=== PATIENT | female | born 1960 | race Caucasian/White ===

== ENCOUNTER 2018-05-15 09:00 | Outpatient (CLI) | payer BC ==
--- NOTE | 2018-05-15 11:00 | MRI ---
MRI LUMBAR SPINE WITHOUT CONTRAST: History: Spinal stenosis. M48.062 Technique: Multiplanar, multisequence noncontrast enhanced MRI images were obtained of the lumbar spi ne. FINDINGS: T12-L1: Unremarkable. L1-2: Disc desiccation is seen. Disc space height loss seen. Irregularity seen at the inferior endpla te of L1 and superior endplate of L2. There is mild facet hypertrophy present. The central canal is p atent. Minimal but not significant evidence of neural foraminal narrowing is seen. L2-3: Disc desiccation seen. There is a broad based disc bulge with bilateral facet and ligamentum fl avum hypertrophy as well as mild central and lateral recess stenosis. The neural foramen are patent. L3-4: Disc desiccation is seen. There is a broad based disc bulge with bilateral facet and ligamentum flavum hypertrophy resulting in moderate to severe central and lateral recess stenosis. Fluid is see n in the L3-4 facet joints. Mild bilateral neural foraminal narrowing is seen. L4-5: Fusion is seen using pedicle screws and intervertebral disc hardware at L4-5 and L5-S1. No sign ificant degree of central stenosis or neural foraminal narrowing seen at L4-5. L5-S1: Fusion is seen at this level. The central canal is patent. Mild neural foraminal narrowing is seen. IMPRESSION: L3-4 central and lateral recess stenosis just above the fusion level. There may be developing spondyl osis at the L3-4 disc space with a broad based disc bulge and L3-4 facet hypertrophic changes. POS: JO[facility] M
--- NOTE | 2018-05-15 11:03 | MRI ---
MRI CERVICAL SPINE: History: Cervical stenosis. Technique: Multiplanar, multisequence noncontrast enhanced MRI images were obtained of the cervical s pine. FINDINGS: The spinal cord is unremarkable with no evidence of cord masses or lesions. C1-2: Unremarkable. C2-3: Unremarkable. C3-4: There is disc desiccation seen. There is a broad based central disc bulge minimally but not sig nificantly compressing the thecal sac. The neural foramen are patent. C4-5: Unremarkable. C5-6: Disc desiccation is seen. There is a broad based central disc bulge seen minimally but not sign ificantly compressing the thecal sac. The neural foramen are patent. C6-7: Disc desiccation is seen. There is a broad based disc bulge seen. This results in minimal but n ot significant degree of central and lateral recess stenosis. There is moderate to severe bilateral C 6-7 neural foraminal narrowing due to uncal vertebral osteophyte hypertrophy. C7-T1: Unremarkable. IMPRESSION: 1. Broad based central disc bulge at C3-4. There are changes of spondylosis with disc space height lo ss and neural foraminal narrowing at C5-6 and C6-7. POS: [facility]
== END 2018-05-15 09:01 | disposition home or self-care (01) ==
LOC: TBSIIMAG 09:00
PROVIDERS: ATTEND Nurse Practitioner Family
DX: M48.02 Spinal stenosis, cervical region (principal); M48.062 Spinal stenosis, lumbar region with neurogenic claudication; M48.8X2 Other specified spondylopathies, cervical region; M47.812 Spondylosis without myelopathy or radiculopathy, cervical region; M48.8X6 Other specified spondylopathies, lumbar region
CPT/HCPCS: 72141; 72148